=== PATIENT | female | born 1930 | race Caucasian/White ===

== ENCOUNTER 2019-04-14 12:55 | Outpatient (CLI) | payer MEDICARE ==
--- NOTE | 2019-04-14 13:33 | ULT ---
EXAM: Left lower extremity venous ultrasound HISTORY: Left lower extremity redness and edema COMPARISON: None TECHNIQUE: Multiplanar grayscale and color Doppler images were obtained in a left lower extremity dora ous ultrasound. Spectral analysis of the Doppler waveforms were performed. FINDINGS: The common femoral vein, profunda femoral vein, superficial femoral vein, and popliteal vei n are normal in appearance without visible thrombus. These vessels demonstrate normal compression, flow, and augmentation. The posterior tibial vein and greater saphenous vein are patent without evidence of thrombus. There are prominent left inguinal lymph nodes. IMPRESSION: No evidence of DVT.
== END 2019-04-14 12:56 | disposition home or self-care (01) ==
LOC: SCSULT 12:55
PROVIDERS: ATTEND Nurse Practitioner Adult Health
DX: R60.0 Localized edema (principal)

== ENCOUNTER 2019-06-16 10:47 | Emergency (ER) | payer MEDICARE ==
--- NOTE | 2019-06-16 11:20 | RAD ---
XR Chest 1 View Portable History: Chest pain Comparison: Chest radiograph 2009 Findings: Small effusions. Heart size mildly enlarged. No pneumothorax. Mild fullness of the nita bilaterally likely distention of the pulmonary arteries. Impression: New moderate bilateral layering pleural effusions.
[2019-06-16 11:42] LABS: #Basophils 0.1 thou/uL (0.0-0.2); #Eosinphils 0.1 thou/uL (0.0-0.7); #Lymphocytes 1.8 thou/uL (1.20-3.40); #Monocytes 0.5 thou/uL (0.11-0.59); #Neutrophils 3.7 thou/uL (1.40-6.50); %Basophils 0.9 % (0.0-1.0); %Eosinophils 1.7 % (0.0-10.0); %Lymphocytes 29.8 % (21.0-51.0); %Monocytes 8.2 % (0.0-10.0); %Neutrophils 59.4 % (42.0-75.0); Hemoglobin 10.5 g/dL (12.0-16.0); Mean Corpuscular HGB CONC 33.1 g/dL (32.0-36.0); Mean Corpuscular Hemoglobin 30.1 pg (27.0-31.0); Mean Corpuscular Volume 90.9 fL (78.0-98.0); Mean Platelet Volume 7.7 fL (7.4-10.4); Platelet Count 255 thou/uL (130-400); RBC Distribution Width 13.9 % (11.5-14.5); Red Blood Cell (RBC) Count 3.49 mill/uL (4.20-5.40); White Blood Cell (WBC) Count 6.2 thou/uL (4.8-10.8)
[2019-06-16 12:03] LABS: ALT (SGPT) 24 U/L (8-55); AST (SGOT) 24 U/L (5-34); Alkaline Phosphatase 130 U/L (40-110); Anion Gap 14 mmol/L (10-20); BUN (Urea Nitrogen) 22 mg/dL (9.8-20.1); Bilirubin, Total 0.4 mg/dL (0.2-1.2); CK (CPK) 81 U/L (29-168); Calc. Creatinine Clearance 0 mL/min (70-130); Calcium 9.6 mg/dL (7.8-10.44); Carbon Dioxide 25 mmol/L (23-31); Chloride 103 mmol/L (98-107); Estimated GFR-MDRD 41; Globulin 3.4 g/dL (2.4-3.5); Glucose 161 mg/dL (83-110); Protein, Total 7.4 g/dL (6.0-8.3); Sodium 138 mmol/L (136-145)
[2019-06-16] MEDS ORDERED: Furosemide 40 MG TAB ONE (13:34)
== END 2019-06-16 14:19 | disposition home or self-care (01) ==
LOC: ERS 10:47
DX: I11.0 Hypertensive heart disease with heart failure (principal); I50.9 Heart failure, unspecified; E11.9 Type 2 diabetes mellitus without complications; Z79.899 Other long term (current) drug therapy
CPT/HCPCS: 36415; 71045; 80053; 82043; 82550; 84484; 85025; 93005

== ENCOUNTER 2019-07-07 12:26 | Outpatient (CLI) | payer MEDICARE | END 2019-07-07 12:27 | disposition home or self-care (01) | LOC: ULT 12:26 | PROVIDERS: ATTEND Internal Medicine Cardiovascular Disease | DX: J90 Pleural effusion, not elsewhere classified (principal); I08.8 Other rheumatic multiple valve diseases | CPT/HCPCS: 93306 ==